=== PATIENT | male | born 1990 | race African-American/Black ===

== ENCOUNTER 2023-11-28 17:41 | Inpatient (IN) | payer MEDICAID ==
[~2023-11-28] VITALS: Ht 167.6 cm; Wt 110.9 kg
[2023-11-28] MEDS ORDERED: HALOPERIDOL 5 MG TABLET PO PRN (20:30)
[2023-11-28 20:50] LABS: GLUCOMETER DEV NAME(LOC) POC.BV; POC SARS-COV2 AG, FIA NEGATIVE (NEGATIVE)
[2023-11-28] MEDS: INFLUENZA VIRUS VACCINE QVS 2023-24 (6MO+)/PF 60 MCG/0.5 ML SYRINGE IM. ONE (21:45)
[2023-11-28] MEDS: PNEUMOCOCCAL VACCINE POLYVALENT 0.5 ML SYRINGE [PPSV23] IM. ONE (21:45)
[2023-11-28 22:19] VITALS: BP 140/89; PULSE 86; RESP 18; TEMP 99.1; O2SAT 96
[2023-11-28 23:11] LABS: GLUCOMETER DEV NAME(LOC) POC.BV; POC SARS-COV2 AG, FIA NEGATIVE (NEGATIVE)
[2023-11-29 08:16] VITALS: BP 149/93; PULSE 83; RESP 18; TEMP 97.9; O2SAT 94
[2023-11-29 08:31] LABS: BASOPHILS % (AUTO) 1.4 % (0.0-2.0); EOSINOPHILS % (AUTO) 2.5 % (1.0-6.0); HEMATOCRIT 42.8 % (41-53); HEMOGLOBIN 14.3 g/dL (13.5-17.5); LYMPHOCYTES # (AUTO) 2.1 K/uL (1.0-4.8); LYMPHOCYTES % (AUTO) 42.8 % (22.0-44.0); MEAN CORPUSCULAR HEMOGLOBIN 29.2 pg (26.0-34.0); MEAN CORPUSCULAR HGB CONC 33.5 G/dL (31.0-37.0); MEAN CORPUSCULAR VOLUME 87 fL (80-100); MONOCYTES # (AUTO) 0.3 K/uL (0.1-1.0); MONOCYTES % (AUTO) 6.1 % (2.0-9.0); NEUTROPHILS # (AUTO) 2.3 K/uL (1.8-7.7); NEUTROPHILS % (AUTO) 47.2 % (40.0-70.0); PLATELET COUNT (AUTO) 238 K/uL (150-450); RED BLOOD CELL COUNT(AUTO) 4.91 MIL/uL (4.50-5.90); RED CELL DISTRIBUTION WIDTH 14.9 % (11.5-14.5)
[2023-11-29 09:08] LABS: ALANINE AMINOTRANSFERASE 37 U/L (12-78); ALBUMIN 3.7 g/dL (3.4-5.0); ALKALINE PHOSPHATASE 91 U/L (46-116); ANION GAP 8 mmol/L (8-16); ASPARTATE AMINOTRANSFERASE 21 U/L (15-37); CALCIUM, TOTAL 9.1 mg/dL (8.8-10.5); CARBON DIOXIDE 29 mmol/L (22-29); CHLORIDE 103 mmol/L (98-107); CHOL/HDL RATIO 4.5 (4.2-7.3); CHOLESTEROL 196 mg/dL (131-200); GLOMERULAR FILTR. RATE CALC > 60 mL/min (>60); GLUCOSE,RANDOM 113 mg/dL (70-110); HDL CHOLESTEROL 44 mg/dL (40-60); LDL CHOL (CALC.) 97 mg/dL (0-130); POTASSIUM 3.4 mmol/L (3.5-5.1); SODIUM SERUM 140 mmol/L (136-145); THYROID STIMULATING HORMONE 1.13 uIU/mL (0.36-3.74); TRIGLYCERIDES 275 mg/dL (15-150); UREA NITROGEN, BLOOD 10 mg/dL (7-18)
[2023-11-29] MEDS: ESCITALOPRAM OXALATE 10 MG TABLET PO SCH (12:15)
[2023-11-29] MEDS ORDERED: DOCUSATE SODIUM 100 MG CAPSULE PO PRN (17:45)
[2023-11-29] MEDS ORDERED: MAG HYDROX/ALUMINUM HYD/SIMETH ES 30 ML SUSPENSION UDCUP PO PRN (17:45)
[2023-11-29] MEDS ORDERED: GuaiFENesin/D-METHORPHAN [SUGAR-FREE] 200-20MG/10 ML SYRUP UDCUP PO PRN (17:45)
[2023-11-29] MEDS ORDERED: ACETAMINOPHEN 325 MG TABLET PO PRN (17:45)
[2023-11-29] MEDS ORDERED: MAGNESIUM HYDROXIDE SUSPENSION 30 ML UDCUP PO PRN (17:45)
[2023-11-29] MEDS ORDERED: PETROLATUM,WHITE 28 GM JELLY TP PRN (17:45)
[2023-11-29] MEDS ORDERED: LOPERAMIDE HCL 2 MG CAPSULE PO PRN (17:45)
[2023-11-29] MEDS ORDERED: ONDANSETRON HCL 4 MG TABLET PO PRN (17:45)
[2023-11-29] MEDS ORDERED: NICOTINE 14 MG/24 HOUR PATCH TD PRN (17:45)
[2023-11-29] MEDS ORDERED: ALBUTEROL SULFATE HFA 90 MCG/PUFF 8 GM INHALER IH PRN (17:45)
[2023-11-29] MEDS ORDERED: IBUPROFEN 400 MG TABLET PO PRN (17:45)
[2023-11-29 20:10] VITALS: BP 136/92; PULSE 74; RESP 18; TEMP 97.6; O2SAT 92
[2023-11-30 08:06] VITALS: BP 137/85; PULSE 77; RESP 18; TEMP 98.3; O2SAT 94
[2023-11-30 08:32] LABS: HEMOGLOBIN A1C 4.9 % (3.8-5.6)
[2023-11-30 08:48] LABS: CHOL/HDL RATIO 4.9 (4.2-7.3); POTASSIUM 3.4 mmol/L (3.5-5.1); THYROID STIMULATING HORMONE 0.96 uIU/mL (0.36-3.74)
[2023-11-30 20:33] VITALS: BP 143/87; PULSE 98; RESP 18; TEMP 98; O2SAT 98
[2023-12-01 08:17] VITALS: BP 149/98; PULSE 90; RESP 18; TEMP 97.9; O2SAT 96
[2023-12-01 19:43] VITALS: BP 139/85; PULSE 88; RESP 18; TEMP 98
[2023-12-02 08:23] VITALS: BP 160/100; PULSE 90; RESP 18; TEMP 97.8; O2SAT 100
[2023-12-02] MEDS: LORazepam 2 MG TABLET PO PRN (08:38)
[2023-12-02] MEDS: ZOLPIDEM TARTRATE 10 MG TABLET PO PRN (20:45)
[2023-12-02 22:36] VITALS: BP 150/90; PULSE 95; RESP 18; TEMP 97.8; O2SAT 96
[2023-12-03 08:43] VITALS: BP 149/123; PULSE 100; RESP 18; TEMP 97.6; O2SAT 98
[2023-12-03 09:02] VITALS: BP 179/97; PULSE 109; RESP 18; TEMP 96.6; O2SAT 97
[2023-12-03] MEDS: CloNIDine HCL 0.1 MG TABLET PO PRN (09:03)
[2023-12-03 11:17] VITALS: BP 159/102; PULSE 105; RESP 18; TEMP 97.5; O2SAT 99
[2023-12-03] MEDS: AmLODIPine BESYLATE 5 MG TABLET PO SCH (11:18)
[2023-12-03 12:41] VITALS: BP 164/124; PULSE 103; RESP 18; TEMP 97.5; O2SAT 99
[2023-12-03] MEDS: AmLODIPine BESYLATE 5 MG TABLET PO ONE (13:43)
[2023-12-03 14:45] VITALS: BP 150/99; PULSE 95; RESP 18; O2SAT 99
[2023-12-03 21:01] VITALS: BP 143/76; PULSE 94; RESP 19; TEMP 98.2; O2SAT 98
[2023-12-04 08:13] LABS: APPEARANCE,URINE TURBID (CLEAR); BILIRUBIN,URINE NEGATIVE (NEGATIVE); COLOR,URINE ORANGE (YELLOW); GLUCOSE, URINE (UA) NEGATIVE (NEGATIVE); KETONES,URINE NEGATIVE (NEGATIVE); LEUKOCYTE ESTERASE ,URINE SMALL (NEGATIVE); NITRATE,URINE NEGATIVE (NEGATIVE); OCCULT BLOOD,URINE NEGATIVE (NEGATIVE); PROTEIN,URINE 30-70 mg/dL (NEGATIVE); SPECIFIC GRAVITIY, URINE 1.028 (1.003-1.030); UROBILINOGEN,URINE <=1.0 mg/dL (<=1.0)
[2023-12-04 08:14] LABS: TROPONIN I-HIGH SENSITIVITY 22 ng/L (<76)
[2023-12-04 08:20] LABS: ALCOHOL, URINE DRUG SCREEN NEGATIVE (NEGATIVE); AMPHET/METH SCREEN,URINE POSITIVE (NEGATIVE); BARBITURATE SCREEN, URINE NEGATIVE (NEGATIVE); BENZODIAZEPINES SCREEN,URINE NEGATIVE (NEGATIVE); CANNABINOID SCREEN,URINE POSITIVE (NEGATIVE); COCAINE SCREEN,URINE NEGATIVE (NEGATIVE); METHADONE SCREEN, URINE NEGATIVE (NEGATIVE); OPIATE SCREEN,URINE NEGATIVE (NEGATIVE); PHENCYCLIDINE SCREEN,URINE NEGATIVE (NEGATIVE)
[2023-12-04 08:24] LABS: AMORPHOUS SEDIMENT,UR Many /LPF (None Seen); BACTERIA,URINE None Seen /HPF (None Seen); RBC,URINE None Seen /HPF (0-2); WBC,URINE 0-2 /HPF (0-5)
[2023-12-04 08:36] VITALS: BP 171/103; PULSE 95; RESP 18; TEMP 98.6; O2SAT 98
[2023-12-04] MEDS: AmLODIPine BESYLATE 10 MG TABLET PO SCH (08:38)
[2023-12-04] MEDS ORDERED: ESCI-8 PO (10:39)
[2023-12-04] MEDS ORDERED: AMLO-258 PO (12:06)
[2023-12-04 14:43] VITALS: BP 142/91; PULSE 89; RESP 18; TEMP 98.2; O2SAT 99
[2023-12-04 16:20] VITALS: BP 142/91; PULSE 92; RESP 18; TEMP 98
[2023-12-04] MEDS ORDERED: CHLORTHALIDONE 25 MG TABLET PO SCH (16:30)
[2023-12-04] MEDS: LOSARTAN POTASSIUM 50 MG TABLET PO SCH (16:49)
[2023-12-04] MEDS ORDERED: LOSA-381 PO (17:58)
== END 2023-12-04 18:30 | disposition home or self-care (01) | DRG 751 ==
LOC: B2S 19:56 → B3A 12-01 17:50
PROVIDERS: ADMIT Psychiatry & Neurology Child & Adolescent Psychiatry; ATTEND Psychiatry & Neurology Child & Adolescent Psychiatry
DX: F33.3 Major depressive disorder, recurrent, severe with psychotic symptoms (principal); R45.851 Suicidal ideations; F29 Unspecified psychosis not due to a substance or known physiological condition; E66.9 Obesity, unspecified; I10 Essential (primary) hypertension; R73.9 Hyperglycemia, unspecified; Z20.822 Contact with and (suspected) exposure to COVID-19; E87.6 Hypokalemia; G47.00 Insomnia, unspecified; Z68.39 Body mass index [BMI] 39.0-39.9, adult
CPT/HCPCS: 80053; 80061; 80307; 81001; 83036; 84132; 84439; 84443; 84484; 85025; 87081